=== PATIENT | female | born 1955 | race Caucasian/White ===

== ENCOUNTER 2019-08-17 06:14 | Observation (INO) ==
[2019-08-17] MEDS ORDERED: CeFAZolin Syr 2,000MG/20 ML 2,000 MG/20 ML SYRINGE IVPB ONE (06:35)
[2019-08-17] MEDS ORDERED: Ringers Solution, Lactated 1,000 ML IVC SCH (06:45)
[2019-08-17] MEDS ORDERED: *HR* Propofol 200 MG/20 ML VIAL IVP ONE (07:09)
[2019-08-17] MEDS ORDERED: *HR* FentaNYL (PF) 100 MCG/2 ML VIAL ONE (07:09)
[2019-08-17] MEDS ORDERED: Lidocaine -MPF 2% 2 ML VIAL ONE (07:11)
[2019-08-17] MEDS ORDERED: Ondansetron 4 MG/2 ML VIAL ONE (07:11)
[2019-08-17] MEDS ORDERED: *HR* Rocuronium Bromide 50 MG/5 ML VIAL ONE (07:11)
[2019-08-17] MEDS ORDERED: Dexamethasone 4 MG/ML VIAL ONE (07:11)
[2019-08-17] MEDS ORDERED: *HR* Succinylcholine 200 MG/10 ML VIAL IVP ONE (07:11)
[2019-08-17] MEDS ORDERED: Lidocaine HCL 4 ML Topical Solution (Laryng-O-Jet Kit Sterile Pak) TP ONE (07:11)
[2019-08-17] MEDS ORDERED: *HR* Phenylephrine 10 MG/ML VIAL ONE (07:26)
[2019-08-17] MEDS ORDERED: *HR* Midazolam HCl 2 MG/2 ML VIAL ONE (07:27)
[2019-08-17] MEDS ORDERED: Ondansetron 4 MG/2 ML VIAL IVP ONE (07:37)
[2019-08-17] MEDS ORDERED: *HR* OxyCODONE Immed Rel 5 MG TABLET PO PRN (07:37)
[2019-08-17] MEDS ORDERED: Bacitracin 50,000 UNIT, Polymyxin B Sulfate 500,000 UNIT, Sodium Chloride IRRigation 1,... IR ONE (07:45)
[2019-08-17] MEDS ORDERED: EPHEDrine 50 MG/ML VIAL ONE (08:06)
[2019-08-17] MEDS ORDERED: *HR* HYDROMORPHONE 2 MG/ML VIAL ONE (11:02)
[2019-08-17] MEDS: *HR* HYDROmorphone PF 0.5 MG/0.5 ML SYRINGE IVP PRN ×2 (11:56→12:03)
[2019-08-17] MEDS ORDERED: Naloxone 0.4 MG/ML INJ IVP PRN ×2 (13:29→14:19)
[2019-08-17] MEDS ORDERED: Naloxone 0.4 MG/ML INJ ONE (13:30)
[2019-08-17] MEDS ORDERED: *HR* HYDROcodone/Acet 5/325 mg TABLET PO PRN (14:19)
[2019-08-17] MEDS ORDERED: OXYGEN NS SCH (14:19)
[2019-08-17] MEDS ORDERED: Ondansetron 4 MG/2 ML VIAL IVP PRN (14:19)
[2019-08-17] MEDS: CeFAZolin 2 GM/120 ML BAG IVPB SCH ×2 (16:12→23:43)
[2019-08-17] MEDS ORDERED: 0.9 % Sodium Chloride 500 ML IVC ONE (18:38)
[2019-08-17] MEDS: Acetaminophen 325 MG TABLET PO PRN (18:59)
[2019-08-17] MEDS: Budesonide/Formoterol 160/4.5 1 PUFF INH IH SCH (20:44)
[2019-08-17] MEDS: Fluticasone Propionate Nasal 50 MCG/SPRAY BOTTLE NS SCH (22:08)
[2019-08-17] MEDS: *HR* OxyCODONE Immed Rel 5 MG TABLET PO PRN (23:40)
[2019-08-18] MEDS: Acetaminophen 325 MG TABLET PO PRN ×2 (03:08→12:22)
[2019-08-18] MEDS ORDERED: tiZANidine 4 MG TABLET PO PRN (04:10)
[2019-08-18] MEDS ORDERED: diazePAM 5 MG TABLET PO ONE (04:14)
[2019-08-18] MEDS ORDERED: Gabapentin 300 MG CAPSULE PO SCH (04:15)
[2019-08-18] MEDS: Albuterol 2.5 MG/3 ML NEBULIZER IH PRN (07:41)
[2019-08-18] MEDS: Multivit/Ca/Min/Fe/FA 1 TAB TABLET PO SCH (09:33)
[2019-08-18] MEDS: Cholecalciferol (D-3) 1,000 UNIT (25MCG) TABLET PO SCH (09:33)
[2019-08-18] MEDS: Fluticasone Propionate Nasal 50 MCG/SPRAY BOTTLE NS SCH ×2 (09:34→21:27)
[2019-08-18] MEDS: Gabapentin 300 MG CAPSULE PO SCH ×2 (10:39→17:20)
[2019-08-18] MEDS: Budesonide/Formoterol 160/4.5 1 PUFF INH IH SCH ×2 (10:56→22:48)
[2019-08-18] MEDS: Tiotropium 18 MCG inhalation IH SCH (10:57)
[2019-08-18] MEDS: Ringers Solution, Lactated 1,000 ML IVC SCH (12:17)
[2019-08-18] MEDS ORDERED: 0.9 % Sodium Chloride 500 ML IVC ONE (14:14)
[2019-08-18] MEDS: *HR* OxyCODONE Immed Rel 5 MG TABLET PO PRN (21:27)
[2019-08-19] MEDS: Gabapentin 300 MG CAPSULE PO SCH ×3 (01:14→17:10)
[2019-08-19] MEDS: Ringers Solution, Lactated 1,000 ML IVC SCH (01:14)
[2019-08-19] MEDS: Albuterol 2.5 MG/3 ML NEBULIZER IH PRN ×2 (07:48→22:12)
[2019-08-19] MEDS: Budesonide/Formoterol 160/4.5 1 PUFF INH IH SCH ×2 (07:48→22:10)
[2019-08-19] MEDS: Tiotropium 18 MCG inhalation IH SCH (07:49)
[2019-08-19] MEDS: Multivit/Ca/Min/Fe/FA 1 TAB TABLET PO SCH (09:20)
[2019-08-19] MEDS: Acetaminophen 325 MG TABLET PO PRN (09:20)
[2019-08-19] MEDS: Cholecalciferol (D-3) 1,000 UNIT (25MCG) TABLET PO SCH (09:21)
[2019-08-19] MEDS: Fluticasone Propionate Nasal 50 MCG/SPRAY BOTTLE NS SCH ×2 (09:21→19:52)
[2019-08-19 16:56] LABS: Bilirubin,Urine Negative (Negative); Blood,Urine Negative (Negative); Clarity,Urine Clear (Clear); Color,Urine Yellow (Yellow); Glucose,Urine (UA) Normal (Normal); Ketones,Urine Negative (Negative); Leukocyte Esterase,Urine Negative (Negative); Nitrite,Urine Negative (Negative); PH,Urine 6.5 pH Units (5.0-8.0); Protein,Urine Negative (Neg-Trace); Specific Gravity,Urine 1.017 (1.010-1.025); Urobilinogen,Urine Normal (Normal)
[2019-08-19] MEDS: *HR* OxyCODONE Immed Rel 5 MG TABLET PO PRN (19:52)
[2019-08-20] MEDS: Gabapentin 300 MG CAPSULE PO SCH ×3 (00:44→16:29)
[2019-08-20] MEDS: Albuterol 2.5 MG/3 ML NEBULIZER IH PRN (09:53)
[2019-08-20] MEDS: Budesonide/Formoterol 160/4.5 1 PUFF INH IH SCH (09:53)
[2019-08-20] MEDS: Tiotropium 18 MCG inhalation IH SCH (09:54)
[2019-08-20] MEDS: *HR* OxyCODONE Immed Rel 5 MG TABLET PO PRN (10:04)
[2019-08-20] MEDS: Multivit/Ca/Min/Fe/FA 1 TAB TABLET PO SCH (10:05)
[2019-08-20] MEDS: Cholecalciferol (D-3) 1,000 UNIT (25MCG) TABLET PO SCH (10:05)
[2019-08-20] MEDS: Fluticasone Propionate Nasal 50 MCG/SPRAY BOTTLE NS SCH (10:08)
[2019-08-20 16:05] VITALS: BP 98/65
[2019-08-20] MEDS: Acetaminophen 325 MG TABLET PO PRN (16:29)
== END 2019-08-20 18:00 | disposition home health service (06) ==
LOC: SAMDAY 06:14 → 3NENU 06:14
PROVIDERS: ADMIT Orthopaedic Surgery Orthopaedic Surgery of the Spine; ATTEND Orthopaedic Surgery Orthopaedic Surgery of the Spine